=== PATIENT | female | born 1975 | race African-American/Black ===

== ENCOUNTER 2018-10-20 16:30 | Emergency (ER) | payer OTHER ==
[~2018-10-20] VITALS: Ht 157.5 cm; Wt 72.0 kg
[~2018-10-20 16:30] MED LIST: ALPR0.25 PO; AMLO-150 PO; ATOR10TA9 PO; CYAN1TAB29 PO; HYDR-3241 PO; HYDR-3653 PO; MAGN30OR PO; MEDR150D3 IM; METO50TA82 PO; OMEG1CAP6 PO; ONDA4TAB7 PO; OXYC-302 PO; SPIR1TAB3 PO; ZOLP10TA5 PO
[2018-10-20 16:54] VITALS: BP 154/80
[2018-10-20] MEDS ORDERED: HYDROcodone/APAP 5/325 TABLET PO ONE (17:30)
[2018-10-20] MEDS ORDERED: HYDROcodone/APAP 5/325 TABLET ONE (17:41)
--- NOTE | 2018-10-20 18:09 | NUR ---
Patient/Caregiver given discharge instructions and they have confirmed that they understand the instructions. Patient ambulatory with steady gait USING CRUTCHES. WHEN PT EDUCATED ON PROPER USE OF CRUTCHES, PT STATES "I ALREADY TOLD HIM I'M NOT GOING TO STAND UP STRAIGHT USING THESE." PT LEFT WITH ALL PERSONAL BELONGINGS.
== END 2018-10-20 18:12 | disposition home or self-care (01) ==
LOC: ED 17:50
DX: M25.461 Effusion, right knee (principal); G89.29 Other chronic pain
CPT/HCPCS: 99283

== ENCOUNTER 2019-01-12 07:26 | Inpatient (IN) | payer OTHER ==
[~2019-01-12] VITALS: Ht 157.5 cm; Wt 68.6 kg
[~2019-01-12 07:26] MED LIST changes: +BUPIVACAINE/EPI 0.5% 1:200K ONE
[2019-01-12] MEDS ORDERED: LACTATED RINGERS 1,000 ML IV SCH (07:56)
[2019-01-12] MEDS ORDERED: LIDOCAINE-MPF 1%, 2ML INFIL ONE (08:00)
[2019-01-12 08:07] VITALS: BP 150/98
[2019-01-12] MEDS ORDERED: TRAZ50TA66 PO (08:18)
[2019-01-12] MEDS ORDERED: PLEASE ENTER HEIGHT AND WEIGHT MC SCH (08:30)
[2019-01-12] MEDS ORDERED: MIDAZOLAM 1 MG/ML, 2ML ONE (08:35)
[2019-01-12] MEDS ORDERED: SUCCINYLCHOLINE 20 MG/ML, 10ML ONE (08:36)
[2019-01-12] MEDS ORDERED: GLYCOPYRROLATE 0.2MG/1ML, 5ML ONE (08:36)
[2019-01-12] MEDS ORDERED: ONDANSETRON 2MG/ML, 2ML ONE (08:36)
[2019-01-12] MEDS ORDERED: FENTANYL PF 250 MCG/5ML ONE ×3 (08:36→10:01)
[2019-01-12] MEDS ORDERED: PROPOFOL 10 MG/ML, 20ML ONE (08:36)
[2019-01-12] MEDS ORDERED: ROCURONIUM 10MG/ML,5ML ONE (08:36)
[2019-01-12] MEDS ORDERED: DEXAMETHASONE 4 MG/ML, 1ML ONE (08:36)
[2019-01-12] MEDS ORDERED: NEOSTIGMINE 1 MG/ML, 10ML ONE (08:36)
[2019-01-12 08:38] LABS: MEAN CORPUSCULAR HEMOGLOBIN 20.8 pg (27.0-34.8); MEAN CORPUSCULAR HGB CONC 31.2 g/dL (32.4-35.8); MEAN CORPUSCULAR VOLUME 66.8 fL (80-100); MEAN PLATELET VOLUME 10.3 fL (7.4-10.4); PLATELET COUNT 347 x10^3/uL (130-400); RED BLOOD COUNT 6.19 x10^6/uL (3.82-5.3); RED CELL DISTRIBUTION WIDTH 19.3 % (9.6-15.2)
[2019-01-12 08:43] LABS: MD YES
[2019-01-12 08:44] LABS: EOS#(MANUAL) 0.16 x10^3/uL (0.0-0.4); EOS% (MANUAL) 2 % (1-7); LYMPH#(MANUAL) 3.43 x10^3/uL (1-3.4); LYMPHS% (MANUAL) 44 % (22-44); MONOS#(MANUAL) 0.39 x10^3/uL (0.3-2.7); MONOS% (MANUAL) 5 % (2-9); NRBC % (MANUAL) 1 % (0-1); SEG#(MANUAL) 3.82 x10^3/uL (1.8-6.8); SEGS% (MANUAL) 49 % (42-75)
[2019-01-12 08:45] LABS: <PLATELET ESTIMATE> ADEQUATE; ANISOCYTOSIS 1+; MICROCYTOSIS 1+; OVALOCYTES 1+
[2019-01-12 08:46] LABS: <PLT MORPHOLOGY> NORMAL PLT MORPH
[2019-01-12] MEDS ORDERED: ONDANSETRON 2MG/ML, 2ML IV PRN ×2 (10:00→13:30)
[2019-01-12] MEDS ORDERED: ACETAMINOPHEN 325 MG TABLET PO PRN (10:00)
[2019-01-12] MEDS ORDERED: hydrALAzine 20 MG/ML, 1ML IV PRN (10:00)
[2019-01-12] MEDS ORDERED: PROMETHAZINE 25 MG/ML, 1ML IM PRN ×2 (10:00)
[2019-01-12] MEDS ORDERED: PROMETHAZINE 25 MG SUPP PR PRN (10:00)
[2019-01-12] MEDS ORDERED: OXYcodone 5 MG/5 ML ORAL.SOL UDC PO PRN (10:00)
[2019-01-12] MEDS ORDERED: ONDANSETRON ODT 8 MG PO PRN (10:00)
[2019-01-12] MEDS ORDERED: PROMETHAZINE 12.5 MG SUPP PR PRN (10:00)
[2019-01-12] MEDS ORDERED: LABETALOL 5MG/ML, 20ML IV PRN (10:00)
[2019-01-12] MEDS ORDERED: HALOPERIDOL 5 MG/ML IV PRN (10:00)
[2019-01-12] MEDS ORDERED: MEPERIDINE/PF 25MG/0.5ML IVPush PRN (10:00)
[2019-01-12] MEDS ORDERED: PROMETHAZINE 25 MG/ML, 1ML IV PRN (10:00)
[2019-01-12] MEDS ORDERED: METOPROLOL 1 MG/ML, 5ML ONE (10:01)
[2019-01-12] MEDS ORDERED: hydrALAzine 20 MG/ML, 1ML ONE (10:29)
[2019-01-12] MEDS ORDERED: FENTANYL PF 100 MCG/2ML ONE (11:08)
[2019-01-12] MEDS ORDERED: OXYcodone 5 MG/5 ML ORAL.SOL UDC ONE (11:08)
[2019-01-12] MEDS ORDERED: ACETAMINOPHEN 650 MG/20.3 ML UDC ONE (11:08)
[2019-01-12] MEDS: FENTANYL PF 100 MCG/2ML IV PRN ×2 (11:12→11:20)
[2019-01-12] MEDS ORDERED: HYDROmorphone 1 MG/ML, 1ML VIAL ONE ×2 (11:33→12:06)
[2019-01-12] MEDS: HYDROmorphone 2 MG/ML, 1ML IVPush PRN ×5 (11:35→12:22)
[2019-01-12 13:00] VITALS: BP 137/80
[2019-01-12] MEDS: LACTATED RINGERS 1,000 ML IV SCH (14:11)
[2019-01-12] MEDS: HYDROmorphone 2 MG/ML, 1ML IV PRN ×2 (14:28→21:40)
[2019-01-12] MEDS: HYDROcodone/APAP 5/325 TABLET PO PRN ×3 (15:37→23:57)
[2019-01-12 18:27] LABS: ALBUMIN 3.5 g/dL (3.4-5.0); CALCIUM 9.1 mg/dL (8.5-10.1)
[2019-01-12 19:38] VITALS: BP 149/83
[2019-01-12 22:57] VITALS: BP 133/78
[2019-01-13 00:56] LABS: ALBUMIN 3.4 g/dL (3.4-5.0); CALCIUM 8.9 mg/dL (8.5-10.1)
[2019-01-13] MEDS: LACTATED RINGERS 1,000 ML IV SCH (01:52)
[2019-01-13] MEDS: HYDROmorphone 2 MG/ML, 1ML IV PRN (02:04)
[2019-01-13 03:47] VITALS: BP 146/87
[2019-01-13] MEDS: HYDROcodone/APAP 5/325 TABLET PO PRN ×2 (04:30→09:11)
[2019-01-13 06:22] LABS: ALBUMIN 3.4 g/dL (3.4-5.0); CALCIUM 9.1 mg/dL (8.5-10.1)
[2019-01-13 07:35] VITALS: BP 148/80
[2019-01-13] MEDS ORDERED: LEVO125T PO (09:18)
[2019-01-13] MEDS ORDERED: HYDR-3240 PO (09:18)
== END 2019-01-13 10:16 | disposition home or self-care (01) | DRG 627 ==
LOC: OUT 07:26 → 4NOR 12:59 → OUT 13:05 → 4NOR 13:05 → DCLOUNGE 01-13 09:54
PROVIDERS: ADMIT Surgery; ATTEND Surgery
PROC: 0GTH0ZZ Resection of Right Thyroid Gland Lobe, Open Approach (ICD-10-PCS; 2019-01-12)
PROC: 0GTG0ZZ Resection of Left Thyroid Gland Lobe, Open Approach (ICD-10-PCS; 2019-01-12)
PROC: 4A11X4G Monitoring of Peripheral Nervous Electrical Activity, Intraoperative, External Approach (ICD-10-PCS; 2019-01-12)
PROC: 0GTJ0ZZ Resection of Thyroid Gland Isthmus, Open Approach (ICD-10-PCS; principal; 2019-01-12 10:00)
DX: E05.00 Thyrotoxicosis with diffuse goiter without thyrotoxic crisis or storm (principal); Z90.49 Acquired absence of other specified parts of digestive tract; Z90.710 Acquired absence of both cervix and uterus; E61.1 Iron deficiency; Z88.6 Allergy status to analgesic agent; Z88.8 Allergy status to other drugs, medicaments and biological substances
CPT/HCPCS: 36415; J3490; 82040; 82310; 85025; 88307; G0378; J1100; J1170; J2250; J2405; J2704; J2710; J3010; C1760; J0330; J0360